=== PATIENT | female | born 1990 | race Caucasian/White ===

== ENCOUNTER 2019-01-22 19:40 | Emergency (ER) | payer MEDICAID, OTHER ==
--- NOTE | 2019-01-22 20:08 | EDM.PDOC ---
ED HPI GENERAL MEDICAL PROBLEM - General Chief Complaint: BAKER TEST Problem Stated Complaint: CRAMPS Time Seen by Provider: 01/22/19 19:40 Source of Information: Reports: Patient History Limitations: Reports: No Limitations - History of Present Illness INITIAL COMMENTS - FREE TEXT/NARRATIVE: 28 y.o.w.f with endometriosis, came to the ED due to epigastric and lower abd. pain. No trauma, no dysuria, pain got worse a few days ago. Pt is seen at [facility] for her endometriosis flare up. No N/V/D, no SOB, no CP or any other acute med issues. BP 125/89 RR 18 Pulse 100% on RA Temp 36.6 Pulse 117 Onset Date: 01/21/19 Onset Time: 08:00 Duration: Hour(s):, Day(s):, Intermittent Location: Reports: Abdomen (epigastric), Pelvis Quality: Reports: Dull, Same as Previous Episode Severity: Moderate Improves with: Reports: None Worsens with: Reports: Other (has h/o endometriosis) Context: Reports: Other Associated Symptoms: Reports: No Other Symptoms hypogastric Pain Score (Numeric/FACES): 9 - Related Data Allergies Allergy/AdvReac Type Severity Reaction Status Date / Time latex Allergy Hives Verified 01/22/19 20:05 seasonal Allergy Sneezing Uncoded 01/22/19 20:05 Home Meds: Home Meds Albuterol [Proventil] 2.5 mg INH ASDIRECTED 07/22/14 [History] Fluticasone Propionate [Flonase] 2 sprays VIDHI DAILY 07/22/14 [History] Montelukast [Singulair] 10 mg PO DAILY 07/22/14 [History] Multivitamin [Multivitamins] 1 each PO DAILY 07/22/14 [History] Omeprazole Magnesium [Prilosec Otc] 1 tab PO DAILY 01/22/19 [History] Past Medical History Other HEENT History: neck mass removed BAKER TEST History: Reports: Endometriosis Other BAKER TEST History: ovarian cyst removal. Psychiatric History: Reports: Anxiety - Past Surgical History Female Surgical History: Reports: Dilitation & Evacuation Social & Family History - Family History Family Medical History: Noncontributory ED ROS GENERAL - Review of Systems Review Of Systems: See Below Constitutional: Reports: No Symptoms HEENT: Reports: No Symptoms Respiratory: Reports: No Symptoms Cardiovascular: Reports: No Symptoms Endocrine: Reports: No Symptoms GI/Abdominal: Reports: No Symptoms : Reports: No Symptoms Musculoskeletal: Reports: No Symptoms Skin: Reports: No Symptoms Neurological: Reports: No Symptoms Psychiatric: Reports: No Symptoms Hematologic/Lymphatic: Reports: No Symptoms Immunologic: Reports: No Symptoms ED EXAM, GI/ABD - Physical Exam Exam: See Below Exam Limited By: No Limitations General Appearance: Alert, WD/WN, No Apparent Distress Eyes: Bilateral: Normal Appearance Ears: Normal External Exam, Normal Canal Nose: Normal Inspection, Normal Mucosa, No Blood Throat/Mouth: Normal Inspection, Normal Lips, Normal Voice, No Airway Compromise Head: Atraumatic, Normocephalic Neck: Normal Inspection, Supple, Non-Tender, Full Range of Motion Respiratory/Chest: No Respiratory Distress, Lungs Clear, Normal Breath Sounds Cardiovascular: Normal Peripheral Pulses, Regular Rate, Rhythm, No Edema GI/Abdominal Exam: Normal Bowel Sounds, Tender (epigastric) (Female) Exam: Deferred Rectal (Female) Exam: Deferred Back Exam: Normal Inspection, Full Range of Motion Extremities: Normal Inspection, Normal Range of Motion, Non-Tender, Normal Capillary Refill Neurological: Alert, Oriented, CN II-XII Intact, Normal Cognition Psychiatric: Normal Affect, Anxious Skin Exam: Warm, Dry, Intact, Normal Color, No Rash Lymphatic: No Adenopathy Course - Vital Signs Text/Narrative:: 28 y.o.w.f with endometriosis, came to the ED due to epigastric and lower abd. pain. No trauma, no dysuria, pain got worse a few days ago. Pt is seen at [facility] for her endometriosis flare up. No N/V/D, no SOB, no CP or any other acute med issues. BP 125/89 RR 18 Pulse 100% on RA Temp 36.6 Pulse 117 PE: WNWD W F witha h/o endmetriosis c/o epigastric and pelvic pain Imaging: U/S not available Labs: UA neg for UTI CBC and BMP were neg. HGB was 16.7 however Impression: Endometriosis, Epigastric pain. Tx: GI coctail, Toradol Reexam: Meds did not help. She requested to be discharged and agreed for a pelvic US to be done this Saturday. Plan: D/C with instructions Last Recorded V/S: Last Vital Signs Temp 36.7 C 05/02/19 21:35 Pulse 87 01/22/19 21:35 Resp 16 01/22/19 21:35 BP 119/82 01/22/19 21:35 Pulse Ox 100 01/22/19 21:35 - Orders/Labs/Meds Labs: Laboratory Tests 01/22/19 01/22/19 01/22/19 Range/Units 20:08 20:08 20:08 WBC (4.5-12.0) X10-3/uL RBC (3.23-5.20) x10(6)uL Hgb (11.5-15.5) g/dL Hct (30.0-51.3) % MCV (80-96) fL MCH (27.7-33.6) pg MCHC (32.2-35.4) g/dL RDW (11.5-15.5) % Plt Count (125-369) X10(3)uL MPV (7.4-10.4) fL Neut % (Auto) (46-82) % Lymph % (Auto) (13-37) % Brantley % (Auto) (4-12) % Eos % (Auto) (1.0-5.0) % Baso % (Auto) (0-2) % Neut # (Auto) (1.6-8.3) # Lymph # (Auto) (0.6-5.0) # Brantley # (Auto) (0.0-1.3) # Eos # (Auto) (0.0-0.8) # Baso # (Auto) (0.0-0.2) # Sodium (135-145) mmol/L Potassium (3.5-5.3) mmol/L Chloride (100-110) mmol/L Carbon Dioxide (21-32) mmol/L BUN (7-18) mg/dL Creatinine (0.55-1.02) mg/dL Est Cr Clr Drug Dosing mL/min Estimated GFR (MDRD) (>60) BUN/Creatinine Ratio (9-20) Glucose (80-116) mg/dL Calcium (8.6-10.2) mg/dL Urine Color Yellow (YELLOW) Urine Appearance Slightly cloudy (CLEAR) Urine pH 7.0 H (5.0-6.5) Ur Specific [place] 1.010 (1.010-1.025) Urine Protein Negative (NEGATIVE) mg/dL Urine Glucose (UA) Normal (NORMAL) mg/dL Urine Ketones Negative (NEGATIVE) mg/dL Urine Occult Blood Negative (NEGATIVE) Urine Nitrite Negative (NEGATIVE) Urine Bilirubin Negative (NEGATIVE) Urine Urobilinogen 1 H (NEGATIVE) mg/dL Ur Leukocyte Esterase Negative (NEGATIVE) Urine RBC 0-5 (0-5) Urine WBC 0-5 (0-5) Ur Squamous Epith Cells Few H (NS,R,O) Urine Bacteria Few H (NS) Urine Mucus Few H (NS) Urine HCG, Qual Negative (NEGATIVE) Urine Opiates Screen Negative (NEGATIVE) Ur Oxycodone Screen Negative (NEGATIVE) Ur Propoxyphene Screen Negative (NEGATIVE) Ur Barbituates Screen Negative (NEGATIVE) Ur Tricyclics Screen Negative (NEGATIVE) Ur Phencyclidine Scrn Negative (NEGATIVE) Ur Amphetamine Screen Negative (NEGATIVE) Urine MDMA Screen Negative (NEGATIVE) U Benzodiazepines Scrn Negative (NEGATIVE) U Cocaine Metab Screen Negative (NEGATIVE) U Marijuana (THC) Screen Negative (NEGATIVE) 01/22/19 01/22/19 Range/Units 20:22 20:22 WBC 11.6 (4.5-12.0) X10-3/uL RBC 5.41 H (3.23-5.20) x10(6)uL Hgb 16.4 H (11.5-15.5) g/dL Hct 47.2 (30.0-51.3) % MCV 87.2 (80-96) fL MCH 30.2 (27.7-33.6) pg MCHC 34.7 (32.2-35.4) g/dL RDW 12.7 (11.5-15.5) % Plt Count 240 (125-369) X10(3)uL MPV 7.6 (7.4-10.4) fL Neut % (Auto) 76.6 (46-82) % Lymph % (Auto) 16.1 (13-37) % Brantley % (Auto) 5.3 (4-12) % Eos % (Auto) 1 (1.0-5.0) % Baso % (Auto) 1 (0-2) % Neut # (Auto) 8.9 H (1.6-8.3) # Lymph # (Auto) 1.9 (0.6-5.0) # Brantley # (Auto) 0.6 (0.0-1.3) # Eos # (Auto) 0.1 (0.0-0.8) # Baso # (Auto) 0.1 (0.0-0.2) # Sodium 139 (135-145) mmol/L Potassium 3.5 (3.5-5.3) mmol/L Chloride 105 (100-110) mmol/L Carbon Dioxide 24 (21-32) mmol/L BUN 10 (7-18) mg/dL Creatinine 0.8 (0.55-1.02) mg/dL Est Cr Clr Drug Dosing 93.37 mL/min Estimated GFR (MDRD) > 60 (>60) BUN/Creatinine Ratio 12.5 (9-20) Glucose 91 (80-116) mg/dL Calcium 8.9 (8.6-10.2) mg/dL Urine Color (YELLOW) Urine Appearance (CLEAR) Urine pH (5.0-6.5) Ur Specific [place] (1.010-1.025) Urine Protein (NEGATIVE) mg/dL Urine Glucose (UA) (NORMAL) mg/dL Urine Ketones (NEGATIVE) mg/dL Urine Occult Blood (NEGATIVE) Urine Nitrite (NEGATIVE) Urine Bilirubin (NEGATIVE) Urine Urobilinogen (NEGATIVE) mg/dL Ur Leukocyte Esterase (NEGATIVE) Urine RBC (0-5) Urine WBC (0-5) Ur Squamous Epith Cells (NS,R,O) Urine Bacteria (NS) Urine Mucus (NS) Urine HCG, Qual (NEGATIVE) Urine Opiates Screen (NEGATIVE) Ur Oxycodone Screen (NEGATIVE) Ur Propoxyphene Screen (NEGATIVE) Ur Barbituates Screen (NEGATIVE) Ur Tricyclics Screen (NEGATIVE) Ur Phencyclidine Scrn (NEGATIVE) Ur Amphetamine Screen (NEGATIVE) Urine MDMA Screen (NEGATIVE) U Benzodiazepines Scrn (NEGATIVE) U Cocaine Metab Screen (NEGATIVE) U Marijuana (THC) Screen (NEGATIVE) Meds: Medications Discontinued Medications Generic Name Dose Route Start Last Admin Trade Name Freq PRN Reason Stop Dose Admin Al Hydroxide/Mg Hydroxide 15 0 ml 01/22/19 20:55 01/22/19 21:05 ml/ Lidocaine HCl 15 ml PO 01/22/19 20:56 30 ml ONETIME ONE Administration Ketorolac Tromethamine 60 mg 01/22/19 21:25 01/22/19 21:30 Toradol IM 01/22/19 21:26 60 mg ONETIME ONE Administration Ondansetron HCl 8 mg 01/22/19 20:55 01/22/19 21:05 Zofran Odt PO 01/22/19 20:56 8 mg ONETIME ONE Administration Departure - Departure Time of Disposition: 21:27 Disposition: Home, Self-Care 01 Condition: Good Clinical Impression: Endometriosis, Pelvic pain - Discharge Information Referrals: Jonathan Viera MD [Primary Care Provider] - Forms: ED Department Discharge, ED Return to Work/School Form Additional Instructions: Please cont your current meds, pelvic U/S tomorrow 01/23/2019 at 1 pm, please f/u with [facility] back if your symptoms get worse acutely
[2019-01-22] MEDS ORDERED: Ondansetron 8 MG Tab.DIS PO ONE (20:55)
[2019-01-22] MEDS ORDERED: Alum Hydroxide/Mag Hydroxide 15 ML, Lidocaine 2% 15 ML PO ONE ×2 (20:55)
[2019-01-22] MEDS ORDERED: Ketorolac 60 MG/2 ML SDV IM ONE (21:25)
[2019-01-22 21:41] VITALS: BP 119/82
== END 2019-01-22 21:43 | disposition home or self-care (01) ==
LOC: FB.ED 19:40
DX: N80.9 Endometriosis, unspecified (principal); R10.13 Epigastric pain; F41.9 Anxiety disorder, unspecified; Z91.040 Latex allergy status; Z79.899 Other long term (current) drug therapy
CPT/HCPCS: 36415; 80048; 80305; 81001; 81025; 85025; 96372; 99284; A9270; J1885

== ENCOUNTER 2021-01-01 09:33 | Emergency (ER) | payer MEDICAID, OTHER ==
--- NOTE | 2021-01-01 10:01 | EDM.PDOC ---
ED HPI GENERAL MEDICAL PROBLEM - General Stated Complaint: CONSTIPATED Time Seen by Provider: 01/01/21 09:50 Source of Information: Reports: Patient History Limitations: Reports: No Limitations - History of Present Illness INITIAL COMMENTS - FREE TEXT/NARRATIVE: 30-year-old female who delivered a baby on 12/28/2020 and she had a small bowel movement at that time but has had no bowel movement since then. She reports rectal pain and pressure and some diffuse abdominal discomfort as well as some lower back pain. She has increased her fluid intake, she has been taking stool softeners twice a day and she has had a whole box of fiber cereal without any results. She rates the pain as a 7-8/10. It is a feeling with some cramps in her abdomen and a pressure feeling in her perineal area. She is still having some vaginal bleeding that is non-malodorous and is still somewhat bright red blood. She has been eating and drinking normally. No dysuria or hematuria. No fevers or chills. She does have some swelling and hardness in both of her lateral breasts with the right one worse than the left one. No redness or increased warmth. She is breast-feeding her baby but she also has her breasts but now and has begun to pump her breast too. There are no other associated signs or symptoms. There are no other modifying factors. 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 Increased fluid intake. 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 Psychiatric History: Reports: Anxiety - Past Surgical History HEENT Surgical History: Reports: Naso-Sinus Surgery (Septorhinoplasty), Oral Surgery (With some teeth extraction) Female Surgical History: Reports: Dilitation & Evacuation, Other (See Below) (Laparoscopy 4) Social & Family History - Tobacco Use Tobacco Use Status *Q: Current Every Day Tobacco User - Caffeine Use Caffeine Use: Reports: Coffee, Soda - Alcohol Use Alcohol Use History: No - Living Situation & Occupation Living situation: Reports: with Significant Other ED ROS GENERAL - Review of Systems Review Of Systems: See Below Constitutional: Reports: No Symptoms HEENT: Reports: No Symptoms Respiratory: Reports: No Symptoms Cardiovascular: Reports: Other (Bilateral breasts large and nontender.) GI/Abdominal: Reports: Abdominal Pain, Constipation. Denies: Nausea, Vomiting : Reports: Other (Still with bright red blood lochia). Denies: Dysuria, Frequency Musculoskeletal: Reports: Back Pain (Lower back pain) Skin: Reports: No Symptoms Neurological: Reports: No Symptoms Psychiatric: Reports: No Symptoms Hematologic/Lymphatic: Reports: No Symptoms Immunologic: Reports: No Symptoms ED EXAM, GENERAL - Physical Exam Exam: See Below Exam Limited By: No Limitations General Appearance: Alert, WD/WN, Moderate Distress (Appears in some discomfort but otherwise nontoxic.) Eye Exam: Bilateral Eye: EOMI, Normal Inspection, PERRL Ears: Normal External Exam, Hearing Grossly Normal Ear Exam: Bilateral Ear: Auricle Normal Nose: Normal Inspection, Normal Mucosa, No Blood Throat/Mouth: Normal Inspection, Normal Lips, Normal Teeth, Normal Oropharynx, Normal Voice, No Airway Compromise Head: Atraumatic, Normocephalic Neck: Normal Inspection, Supple, Non-Tender, Full Range of Motion Respiratory/Chest: No Respiratory Distress, Lungs Clear, Normal Breath Sounds, No Accessory Muscle Use, Chest Non-Tender Cardiovascular: Normal Peripheral Pulses, Regular Rate, Rhythm, No Murmur Peripheral Pulses: 2+: Radial (L), Radial (R) GI/Abdominal: Normal Bowel Sounds, Soft, No Mass, Tender (Mild diffuse tenderness.). No: Guarding, Rebound Rectal (Female) Exam: Normal Rectal Tone, Fecal Impaction (Soft stool impacted in the vault.). No: Mass Back Exam: Normal Inspection, Full Range of Motion Extremities: Normal Inspection, Normal Range of Motion, Non-Tender, No Pedal Edema, Normal Capillary Refill Neurological: Alert, Oriented, CN II-XII Intact, Normal Cognition, No Motor/Sensory Deficits Psychiatric: Normal Affect Skin Exam: Warm, Dry, Intact, Normal Color, No Rash Course - Vital Signs Last Recorded V/S: Last Vital Signs Temp 36.5 C 01/01/21 09:45 Pulse 98 01/01/21 09:45 Resp 16 01/01/21 09:45 BP 122/75 01/01/21 09:45 Pulse Ox 100 01/01/21 09:45 - Re-Assessments/Exams Free Text/Narrative Re-Assessment/Exam: 01/01/21 10:25: 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 Using the gloved digital finger, the fecal impaction in the rectum was broken up. There were no masses. The patient tolerated this well without apparent complications. Following this she did have large results at bowel movement and felt much improved. Departure - Departure Time of Disposition: 10:40 Disposition: Home, Self-Care 01 Condition: Good (Improved) Clinical Impression: Fecal impaction in rectum Constipation Qualifiers: Constipation type: unspecified constipation type Qualified Code(s): K59.00 - Constipation, unspecified - Discharge Information Instructions: Constipation, Adult, [id number], Fecal Impaction Additional Instructions: You did appear to have a fecal impaction in your rectum. Following the rectal exam with the gentle breaking up of the fecal impaction and resultant bowel movement. I would still recommend that you continue to take the stool softeners twice daily. You also need to continue to increase your fluid intake. You should also get MiraLAX ([id number]) and take 1 dose 1-2 times a day until you have established a normal bowel movement pattern again. Back to the emergency department for fever, worsening abdominal pain, vomiting, redness or increased swelling of your breasts or any other concerning sign or symptom. I would recommend that you called the labor and delivery department for you delivered your baby and get their advice on breast pumping and breast-feeding. Sepsis Event Note (ED) - Focused Exam Vital Signs: Vital Signs Temp Pulse Resp BP Pulse Ox 01/01/21 09:45 36.5 C 98 16 122/75 100
[2021-01-01 10:35] VITALS: BP 122/75; PULSE 98
== END 2021-01-01 11:13 | disposition home or self-care (01) ==
LOC: FB.ED 09:33
DX: O99.63 Diseases of the digestive system complicating the puerperium (principal); K59.00 Constipation, unspecified; Z91.040 Latex allergy status; Z91.048 Other nonmedicinal substance allergy status; Z79.899 Other long term (current) drug therapy
CPT/HCPCS: 99283

== ENCOUNTER 2021-05-14 21:31 | Emergency (ER) | payer BC, MEDICAID ==
[2021-05-14 22:03] VITALS: BP 116/75; PULSE 78
--- NOTE | 2021-05-14 22:15 | EDM.PDOC ---
ED HPI GENERAL MEDICAL PROBLEM - General Chief Complaint: General Stated Complaint: COLD SYMPTOMS Time Seen by Provider: 05/14/21 21:45 Source of Information: Reports: Patient History Limitations: Reports: No Limitations - History of Present Illness INITIAL COMMENTS - FREE TEXT/NARRATIVE: Patient presented to the ED because of 1 day history of cough/cold, non- productive, sore throat. There is no fever, chills, N/V/D. Throat Pain Score (Numeric/FACES): 3 - Related Data Allergies Allergy/AdvReac Type Severity Reaction Status Date / Time latex Allergy Hives Verified 01/22/19 20:05 seasonal Allergy Sneezing Uncoded 01/22/19 20:05 Home Meds: Home Meds Albuterol [Proventil] 2.5 mg INH ASDIRECTED 07/22/14 [History] Fluticasone Propionate [Flonase] 2 sprays VIDHI DAILY 07/22/14 [History] Montelukast [Singulair] 10 mg PO DAILY 07/22/14 [History] Multivitamin [Multivitamins] 1 each PO DAILY 07/22/14 [History] Omeprazole Magnesium [Prilosec Otc] 1 tab PO DAILY 01/22/19 [History] Past Medical History Other HEENT History: neck mass removed 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 Psychiatric History: Reports: Anxiety - Past Surgical History HEENT Surgical History: Reports: Naso-Sinus Surgery, Oral Surgery Female Surgical History: Reports: Dilitation & Evacuation, Other (See Below) Social & Family History - Family History Family Medical History: No Pertinent Family History - Tobacco Use Tobacco Use Status *Q: Current Every Day Tobacco User Years of Tobacco use: 10 Packs/Tins Daily: 0.5 - Caffeine Use Caffeine Use: Reports: Coffee, Soda - Recreational Drug Use Recreational Drug Use: No - Living Situation & Occupation Living situation: Reports: with Significant Other ED ROS GENERAL - Review of Systems Review Of Systems: See Below Constitutional: Reports: No Symptoms HEENT: Reports: Rhinitis Respiratory: Reports: Cough Cardiovascular: Reports: No Symptoms Endocrine: Reports: No Symptoms GI/Abdominal: Reports: No Symptoms : Reports: No Symptoms Musculoskeletal: Reports: No Symptoms Skin: Reports: No Symptoms Neurological: Reports: No Symptoms Psychiatric: Reports: No Symptoms ED EXAM, GENERAL - Physical Exam Exam: See Below Exam Limited By: No Limitations General Appearance: Alert, No Apparent Distress Eye Exam: Bilateral Eye: PERRL Ears: Normal External Exam, Normal Canal Nose: Normal Inspection, Normal Mucosa, No Blood Throat/Mouth: Normal Inspection, Normal Lips, Normal Teeth Head: Atraumatic, Normocephalic Neck: Normal Inspection, Supple, Non-Tender, Full Range of Motion Respiratory/Chest: No Respiratory Distress, Lungs Clear, Normal Breath Sounds, No Accessory Muscle Use, Chest Non-Tender Cardiovascular: Normal Peripheral Pulses, Regular Rate, Rhythm, No Edema, No Gallop, No JVD, No Murmur GI/Abdominal: Normal Bowel Sounds, Soft, Non-Tender, No Organomegaly, No Distention, No Abnormal Bruit Back Exam: Normal Inspection, Full Range of Motion Extremities: Normal Inspection, Normal Range of Motion, Non-Tender, No Pedal Edema, Normal Capillary Refill Neurological: Alert, Oriented, CN II-XII Intact, Normal Cognition, Normal Gait, Normal Reflexes, No Motor/Sensory Deficits Psychiatric: Normal Affect Skin Exam: Warm, Intact Course - Vital Signs Last Recorded V/S: Last Vital Signs Temp 37.0 C 05/14/21 21:40 Pulse 78 05/14/21 21:40 Resp 18 05/14/21 21:40 BP 116/75 05/14/21 21:40 Pulse Ox 97 05/14/21 21:40 Departure - Departure Time of Disposition: 22:20 Disposition: Home, Self-Care 01 Condition: Good Clinical Impression: URI (upper respiratory infection) - Discharge Information Instructions: Upper Respiratory Infection, Adult, [id number] Forms: ED Department Discharge Additional Instructions: Please read discharge instructions on URI-viral Increase oral fluids Take ibuprofen 800 mg and tylenol 1000 mg every 8 hours as needed fever/aches/pain Follow up up if you develop fever (temperature of = or more than 100.4'F) Sepsis Event Note (ED) - Focused Exam Vital Signs: Vital Signs Temp Pulse Resp BP Pulse Ox 05/14/21 21:40 37.0 C 78 18 116/75 97
== END 2021-05-14 22:33 | disposition home or self-care (01) ==
LOC: FB.ED 21:31
DX: J06.9 Acute upper respiratory infection, unspecified (principal); Z91.040 Latex allergy status; Z72.0 Tobacco use
CPT/HCPCS: 99283